=== PATIENT | female | born 1995 | race African-American/Black ===

== ENCOUNTER 2017-06-26 15:22 | Emergency (ER) | payer SELFPAY ==
[~2017-06-26] VITALS: Ht 160 cm; Wt 66.0 kg
[2017-06-26 15:33] VITALS: BP 115/46
== END 2017-06-26 18:19 | disposition home or self-care (01) ==
LOC: ER 18:13
DX: M25.561 Pain in right knee (principal); M25.562 Pain in left knee
CPT/HCPCS: 99282

== ENCOUNTER 2024-01-05 22:32 | Emergency (ER) | payer BC ==
[2024-01-05 22:42] VITALS: PULSE 80
== END 2024-01-05 22:46 | disposition left against medical advice (07) ==
LOC: ER 22:32
DX: H92.01 Otalgia, right ear (principal); Z53.21 Procedure and treatment not carried out due to patient leaving prior to being seen by health care provider